=== PATIENT | female | born 1990 | race American Indian/Alaskan Native ===

== ENCOUNTER 2017-09-12 14:41 | Emergency (ER) | payer MEDICAID ==
--- NOTE | 2017-09-12 14:46 | ED PDOC ---
Arrival/HPI - General Time Seen by Provider: 09/12/17 14:46 Historian: Patient - History of Present Illness Narrative History of Present Illness (Text): 09/12/17 14:46 27 y/o female, no significant pmh, nkda, c/o Lt. armpit pain and swelling x 1 month with more severe pain for the past 2 days. Pt. stated that she has chronic lump on the left armpit, more painful and swelling for the past 2 days, no fever or chills, no coughing or night sweat, no dizziness, no palpitation, no other medical or psychological complaints. Past Medical History - Provider Review Nursing Documentation Reviewed: Yes Family/Social History - Physician Review Nursing Documentation Reviewed: Yes Family/Social History: Unknown Family HX Allergies/Home Meds Allergies/Adverse Reactions: Allergies Penicillins Allergy (Verified 09/12/17 15:31) RASH Review of Systems - Review of Systems Constitutional: absent: Fatigue, Fevers Eyes: absent: Vision Changes ENT: absent: Hearing Changes Respiratory: absent: SOB, Cough Cardiovascular: absent: Chest Pain Gastrointestinal: absent: Abdominal Pain, Nausea, Vomiting Skin: Rash, Abscess. absent: Pruritis, Skin Lesions, Laceration, Ulcer, Cellulitis Neurological: absent: Headache, Dizziness Psychiatric: absent: Anxiety, Depression, Suicidal Ideation Physical Exam Vital Signs Temp Pulse Resp BP Pulse Ox 09/12/17 15:46 98.5 F 82 18 134/66 97 - Systems Exam Head: Present: Atraumatic, Normocephalic Pupils: Present: PERRL Extroacular Muscles: Present: EOMI Conjunctiva: Present: Normal Neck: Present: Normal Range of Motion Respiratory/Chest: Present: Clear to Auscultation, Good Air Exchange. No: Respiratory Distress, Accessory Muscle Use Cardiovascular: Present: Regular Rate and Rhythm, Normal S1, S2. No: Murmurs Abdomen: Present: Normal Bowel Sounds. No: Tenderness, Distention, Peritoneal Signs Back: Present: Normal Inspection Upper Extremity: Present: Normal Inspection. No: Cyanosis, Edema Lower Extremity: Present: Normal Inspection. No: Edema Neurological: Present: GCS=15, CN II-XII Intact, Speech Normal, Motor Func Grossly Intact, Gait Normal, Memory Normal Skin: Present: Warm, Dry, Rashes (Lt. armpit visible and palpable lump approx. [id number] with mild fluctuancy, no regional lymphenapathy, FROM without limitation ), Normal Color Psychiatric: Present: Alert, Oriented x 3, Normal Insight, Normal Concentration Medical Decision Making ED Course and Treatment: 09/12/17 15:38 -sensation intact, motor 5/5, wound irrigate with normal saline, clean with betadine, 1% lidocaine injected approx. 1cc for local analgesic, #11 blade made 1.5cm incision, drained approx. 3 purulant discharge, irrigated with normal saline 20cc, iodofoam packing, gauze dressing, hemostasis obtained, sensation intact, motor 5/5 -Discharge home with clindamycin, naproxen for pain as needed, follow up with your own pmd and general surgeon within 2 day, return to the ER for any new or worsening signs or symptoms. - PA / MEDICINE MAN / Resident Statement MD/DO has reviewed & agrees with the documentation as recorded. Disposition/Present on Arrival - Present on Arrival Any Indicators Present on Arrival: No History of DVT/PE: No History of Uncontrolled Diabetes: No Urinary Catheter: No History of Decub. Ulcer: No - Disposition Have Diagnosis and Disposition been Completed?: Yes Diagnosis: Axillary abscess Disposition: HOME/ ROUTINE Disposition Time: 15:41 Patient Plan: Discharge Patient Problems: Current Active Problems Problem Status Onset Axillary abscess Acute Condition: IMPROVED Additional Instructions: -Discharge home with clindamycin, naproxen for pain as needed, follow up with your own pmd and general surgeon within 2 day, return to the ER for any new or worsening signs or symptoms. Prescriptions: Clindamycin [Cleocin] 300 mg PO TID #30 cap Naproxen 500 mg PO BID PRN #20 tablet PRN Reason: Other Referrals: Herman Rivera MD [Medical Doctor] - Follow up with primary [facility] [place] - Follow up with primary Forms: WORK NOTE
[2017-09-12 15:49] VITALS: BP 134/66; PULSE 82; RESP 18; TEMP 98.5; O2SAT 97
== END 2017-09-12 16:21 | disposition home or self-care (01) ==
LOC: ED 14:41 → MERGE 14:41 → ED 16:21
DX: L02.412 Cutaneous abscess of left axilla (principal)